=== PATIENT | female | born 1970 | race Caucasian/White ===

== ENCOUNTER → 2017-03-17 | Outpatient (CLI) | payer SELFPAY ==
[~2017-03-17] MED LIST: DITROPAN XL10 MG PO; ESTROBLEND; LEXAPRO20 MG PO; LINZESS145CAP; MELATONIN1 MG; NEURONTIN100 MG/CAP PO; PRILOTC
== END ==
LOC: COL.RAD 07:25
DX: R19.8 Other specified symptoms and signs involving the digestive system and abdomen (principal); M25.511 Pain in right shoulder